=== PATIENT | male | born 1970 | race Caucasian/White ===

== ENCOUNTER → 2018-01-10 | Day surgery (SDC) | payer OTHER ==
[~2018-01-10] MED LIST: BUPIVACAINE 0.5% 50 ML VIAL.; BUPIVACAINE MPF 0.5% 30 ML VIAL.; DEXAMETHASONE SOD PHOS 20 MG/5 ML VIAL.; EPINEPHrine 1 MG/ML VIAL; LIDOCAINE 1% PF 2 ML VIAL. ID; LIDOCAINE 1% PF 30 ML VIAL.; LIDOCAINE 2% PF Vial for OR 5 ML VIAL.; MIDAZOLAM HCL/PF 2 MG/2 ML VIAL.; MORPHINE SULFATE 4 MG/ML DISP.SYRIN. IV; ONDANSETRON PF 4 MG/2 ML VIAL.; ONDANSETRON PF 4 MG/2 ML VIAL. IV; PROCHLORPERAZINE 10 MG/2 ML VIAL. IV; PROPOFOL 20 ML IV; ceFAZolin 2GM PREMIX 2 GM/50 ML BAG IV; ePHEDrine PF IN SALINE 50 MG/5 ML DISP.SYRIN IV; fentaNYL PF VIAL 100 MCG/2 ML VIAL IV
[2018-01-10] MEDS: IV RINGERS,LACTATED 1000ML 1,000 ML IV (07:37)
[2018-01-10] MEDS: EPINEPHrine VIAL 30 MG/30 ML VIAL (09:03)
== END ==
LOC: SURG 06:48
DX: M75.101 Unspecified rotator cuff tear or rupture of right shoulder, not specified as traumatic (principal); Z98.890 Other specified postprocedural states; J45.909 Unspecified asthma, uncomplicated; M19.90 Unspecified osteoarthritis, unspecified site
CPT/HCPCS: 29827; A7015; C1713; C1782; J0171; J0690; J1100; J2250; J2405; J2704; J3490; J7120

== ENCOUNTER 2021-09-08 08:25 | Day surgery (SDC) | payer OTHER ==
[~2021-09-08] VITALS: Ht 185.4 cm; Wt 92.0 kg
[~2021-09-08 08:25] MED LIST changes: +ACETAMINOPHEN 500 MG TABLET PO PRN; -BUPIVACAINE 0.5% 50 ML VIAL.; -BUPIVACAINE MPF 0.5% 30 ML VIAL.; +CETI10CA PO; -DEXAMETHASONE SOD PHOS 20 MG/5 ML VIAL.; +DOCU-109 PO; -EPINEPHrine 1 MG/ML VIAL; +HYDROmorphone 2 MG/ML INJ. IVP PRN; +IBUP-1060 PO; +IV RINGERS,LACTATED 1000ML 1,000 ML IV SCH; -LIDOCAINE 1% PF 2 ML VIAL. ID; -LIDOCAINE 1% PF 30 ML VIAL.; -LIDOCAINE 2% PF Vial for OR 5 ML VIAL.; -MIDAZOLAM HCL/PF 2 MG/2 ML VIAL.; +MORPHINE SULFATE 2 MG/ML INJ. IVP PRN; -MORPHINE SULFATE 4 MG/ML DISP.SYRIN. IV; +ONDA4TAB10 SL; -ONDANSETRON PF 4 MG/2 ML VIAL.; -ONDANSETRON PF 4 MG/2 ML VIAL. IV; +OXYC1TAB15 PO; -PROCHLORPERAZINE 10 MG/2 ML VIAL. IV; +PROCHLORPERAZINE 10 MG/2 ML VIAL. IVP PRN; -PROPOFOL 20 ML IV; -ceFAZolin 2GM PREMIX 2 GM/50 ML BAG IV; -ePHEDrine PF IN SALINE 50 MG/5 ML DISP.SYRIN IV; -fentaNYL PF VIAL 100 MCG/2 ML VIAL IV; +fentaNYL PF VIAL 100 MCG/2 ML VIAL IVP PRN
[2021-09-08 08:55] VITALS: BP 138/90
[2021-09-08] MEDS ORDERED: ALPR0.254 PO (09:02)
[2021-09-08] MEDS ORDERED: ACYC-12 PO (09:02)
[2021-09-08] MEDS ORDERED: ONDANSETRON PF 4 MG/2 ML VIAL. ONE (09:11)
[2021-09-08] MEDS ORDERED: PROPOFOL 10 MG/ML (20ML) VIAL. IV ONE (09:11)
[2021-09-08] MEDS ORDERED: ROCURONIUM 50 MG/5 ML VIAL. ONE (09:12)
[2021-09-08] MEDS ORDERED: DEXAMETHASONE SOD PHOS 4 MG/ML VIAL ONE (09:12)
[2021-09-08] MEDS ORDERED: BUPIVACAINE-EPI 0.25%-1:200000 MPF 30 ML VIAL. ONE (09:18)
[2021-09-08] MEDS ORDERED: GLYCOPYRROLATE 1 MG/5 ML VIAL. ONE (10:19)
--- NOTE | 2021-09-08 10:19 | PDOC4 ---
Operative Note Operative Note Date: 09/08/2021 at 10:18 AM Preoperative diagnosis: Umbilical hernia Postoperative diagnosis: Same Procedure: Umbilical hernia repair Surgeon: Ciro Specimen: None Dictation: Patient is a 50-year-old male with complaints of painful bulge at his umbilicus. Procedure of umbilical hernia repair was explained to patient detail risk benefits were also discussed including bleeding infection alternatives this procedure also discussed with patient who seemed to understand and gave a verbal written consent to have procedure performed. Patient was taken to the operating room placed in the supine position general anesthesia was initiated once patient was sleeping intubated his abdomen was prepped and draped usual sterile fashion using ChloraPrep. Area around the umbilicus was injected with quarter percent Marcaine with epinephrine incision was made with 15 blade scalpel superior border the umbilicus this carried down through the subcutaneous tissues elect rocautery right hemostasis the hernia content was excised with electrocautery and the fascial defect was closed with a [id number] 0 Vicryl suture. The wound was then closed with 4 subcuticular Monocryl Mastisol Steri-Strips and island dressings were applied. Patient was awakened extubated operating room taken to recovery in stable condition all sponge instrument needle counts listed as correct estimated blood loss 5 mL MT LEMUS MD Sep 08, 2021 10:19
[2021-09-08] MEDS ORDERED: NEOSTIGMINE METHYLSULFATE 5 MG/5 ML SYRINGE. ONE (10:20)
[2021-09-08] MEDS ORDERED: OXYC-325 PO (10:21)
--- NOTE | 2021-09-08 10:22 | DISCH ---
DISCHARGE INSTRUCTIONS Condition on Discharge Condition on Discharge: Stable Activity After Discharge Activity Instructions for Disc: Avoid exertion, Other ROM activity Other activity instructions: No lifting more than 20 pounds for 2 weeks Weight Bearing Status after Di: Non weight bearing Diet after Discharge Diet after Discharge: Regular Wound Incision Care Other wound/incision instructi: May shower in 24-hour Contacting the after DC Call your doctor for: If your condition worsens Follow-Up Follow up with: Dr. Lemus in 2-week MT LEMUS MD Sep 08, 2021 10:22
[2021-09-08] MEDS ORDERED: HYDR-2761 PO (11:13)
[2021-09-08 11:14] VITALS: BP 116/78
[2021-09-08] MEDS ORDERED: HYDROcodone/APAP 5/325MG 1 TAB TABLET PO ONE (11:15)
[2021-09-08] MEDS ORDERED: HYDROcodone/APAP 5/325MG 1 TAB TABLET ONE (11:15)
== END 2021-09-08 12:03 | disposition home or self-care (01) ==
LOC: SURG 08:25
PROVIDERS: ATTEND Surgery
DX: K42.9 Umbilical hernia without obstruction or gangrene (principal); J45.909 Unspecified asthma, uncomplicated; G47.30 Sleep apnea, unspecified; M19.90 Unspecified osteoarthritis, unspecified site; Z79.899 Other long term (current) drug therapy; Z98.890 Other specified postprocedural states; Z72.89 Other problems related to lifestyle; Z88.8 Allergy status to other drugs, medicaments and biological substances
CPT/HCPCS: 49585; A4364; A4930; A6258; A6402; J0690; J1100; J2405; J2704; J2710; J3490; A4452